=== PATIENT | female | born 1950 | race Caucasian/White ===

== ENCOUNTER 2019-12-25 11:16 | Emergency (ER) | payer MEDICARE, BC ==
[~2019-12-25 11:16] MED LIST: Iopamidol 370 76% 125 ML VIAL FS ONE; Sodium Chloride 0.9% 100 ML BAG ONE
[2019-12-25 11:28] LABS: #Basophils 0.1 thou/uL (0.0-0.2); #Eosinphils 0.1 thou/uL (0.0-0.7); #Lymphocytes 1.4 thou/uL (1.20-3.40); #Monocytes 0.4 thou/uL (0.11-0.59); #Neutrophils 1.4 thou/uL (1.40-6.50); %Basophils 1.6 % (0.0-1.0); %Eosinophils 3.3 % (0.0-10.0); %Monocytes 12.8 % (0.0-10.0); %Neutrophils 41.2 % (42.0-75.0); Hemoglobin 13.3 g/dL (12.0-16.0); Mean Corpuscular HGB CONC 31.1 g/dL (32.0-36.0); Mean Corpuscular Hemoglobin 29.2 pg (27.0-31.0); Mean Corpuscular Volume 93.7 fL (78.0-98.0); Mean Platelet Volume 6.5 fL (7.4-10.4); Platelet Count 280 thou/uL (130-400); RBC Distribution Width 12.4 % (11.5-14.5); Red Blood Cell (RBC) Count 4.55 mill/uL (4.20-5.40); White Blood Cell (WBC) Count 3.4 thou/uL (4.8-10.8)
[2019-12-25 11:36] LABS: INR-International Normal Ratio 0.9; PTT 28.1 sec (22.9-36.1); Prothrombin Time 11.7 sec (12.0-14.7)
--- NOTE | 2019-12-25 11:37 | CT ---
CT BRAIN NONCONTRAST: DATE: 12/25/2019 HISTORY: 69-year-old female with acute facial droop, dysarthria, and generalized weakness. Dr. Walton verbally gave this stroke alert protocol report to Dr. Shelley at 11:34 AM 12/25/2019 FINDINGS: There is no evidence of acute intra-axial or extra-axial hemorrhage. There is no midline shift or any other mass effect. There is no extra-axial fluid collection. There is no evidence of obstructive hydrocephalus. Calvarium is intact. IMPRESSION: No acute intracranial findings.
[2019-12-25 11:43] LABS: ALT (SGPT) 31 U/L (8-55); AST (SGOT) 33 U/L (5-34); Albumin 4.2 g/dL (3.4-4.8); Alkaline Phosphatase 100 U/L (40-110); Anion Gap 12 mmol/L (10-20); BUN (Urea Nitrogen) 14 mg/dL (9.8-20.1); Bilirubin, Total 0.4 mg/dL (0.2-1.2); Calc. Creatinine Clearance 0 mL/min (70-130); Calcium 9.4 mg/dL (7.8-10.44); Carbon Dioxide 27 mmol/L (23-31); Chloride 106 mmol/L (98-107); Estimated GFR-MDRD 69; Globulin 2.2 g/dL (2.4-3.5); Glucose 84 mg/dL (80-115); Potassium 4.3 mmol/L (3.5-5.1); Protein, Total 6.4 g/dL (6.0-8.3); Sodium 141 mmol/L (136-145)
[2019-12-25 11:46] LABS: CKMB 3.7 ng/mL (0-6.6); Troponin I Less than 0.010 ng/mL (< 0.028)
--- NOTE | 2019-12-25 13:49 | CT ---
CTA HEAD WITH CONTRAST: Axial tomograms were obtained with multiplanar reconstruction and 3D post processing following angio protocol. INDICATION: Mental status change. Stroke protocol. FINDINGS: The intracranial internal carotid arteries appear patent and symmetric. The anterior cerebral arteri es are patent and symmetric. The middle cerebral arteries are patent and symmetric. Basilar artery is patent. Proximal posterior cerebral arteries are patent and symmetric. Dural venous sinuses appear patent. Bone and soft tissue windows show mucosal edema in the maxillary sinuses. IMPRESSION: Unremarkable CTA head. No evidence of proximal cerebral artery stenosis or occlusion. CTA NECK: Axial tomograms obtained with multiplanar reconstruction and 3D post processing. INDICATION: Stroke protocol. FINDINGS: No evidence of stenosis at the origin of the arch vessels. Common carotid arteries appear patent and unremarkable bilaterally. Carotid bulb and bifurcations appear unremarkable bilaterally. No significant atherosclerotic change . The extracranial internal carotid arteries are patent and symmetric with no significant atherosclerot ic change. Vertebral arteries appear patent and symmetric. No soft tissue abnormality identified. IMPRESSION: Unremarkable CTA neck. POS: [facility]
== END 2019-12-25 12:18 | disposition short-term general hospital (02) ==
LOC: MADERS 11:16
DX: I63.9 Cerebral infarction, unspecified (principal); E11.9 Type 2 diabetes mellitus without complications; I10 Essential (primary) hypertension; Z79.899 Other long term (current) drug therapy
CPT/HCPCS: 37195; 70450; 70496; 70498; 80053; 82550; 82553; 84484; 85025; 85610; 85730; 93005; 94760; 99291; J2997; 36415; J3490; Q9967